=== PATIENT | female | born 1995 | race Caucasian/White ===

== ENCOUNTER 2017-09-15 01:49 | Inpatient (IN) | payer OTHER, SELFPAY ==
[~2017-09-15] VITALS: Ht 162.6 cm; Wt 77.0 kg
[2017-09-15] VITALS (13 sets, daily range): BP systolic 98–127; BP diastolic 54–86
[2017-09-15] MEDS ORDERED: PRENTAB9 PO (02:50)
[2017-09-15 04:04] LABS: MEAN CORPUSCULAR HEMOGLOBIN 30.1 pg (27.0-33.0); MEAN CORPUSCULAR HGB CONC 34.7 g/dl (32.0-36.5); MEAN CORPUSCULAR VOLUME 86.8 fl (80.0-96.0); PLATELET COUNT, AUTOMATED 154 10^3/uL (150-450); RED CELL DISTRIBUTION WIDTH 12.6 % (11.5-14.5); WHITE BLOOD COUNT 12.5 10^3/uL (4.0-10.0)
[2017-09-15] MEDS ORDERED: OXYTOCIN 30 UNITS IN 0.9% NaCl 500ML IV BAG (J2590) As Ordered ONE (05:49)
[2017-09-15] MEDS: PRENATAL VITAMINS CHEWABLE TABLET PO SCH (09:00)
[2017-09-15] MEDS ORDERED: OXYTOCIN DRIP 30 UNITS in APPROPRIATE DILUENT 1 EA IV SCH (09:42)
[2017-09-15] MEDS ORDERED: MEASLES,MUMPS,RUBELLA VACCINE INJ (MMR-II) (90707) SC SCH (09:45)
[2017-09-15] MEDS ORDERED: ACETAMINOPHEN 500 MG TAB PO PRN (09:45)
[2017-09-15] MEDS ORDERED: DOCUSATE SODIUM 100 MG CAP PO PRN (09:45)
[2017-09-15] MEDS ORDERED: RHOGAM 300 MCG (1500 IU) INJ (J2790) IM SCH (09:45)
[2017-09-15] MEDS ORDERED: DIBUCAINE 1% OINTMENT 30GM TOP PRN (09:45)
[2017-09-15] MEDS ORDERED: LIDOCAINE 1% MDV INJ 50 ML VIAL INFIL ONE (09:45)
--- NOTE | 2017-09-15 09:54 | DNPDOC ---
[facility] Delivery Note Delivery Note DATE OF DELIVERY: 09/15/17 PREDELIVERY DIAGNOSIS: 40w5d gestation and labor. POST DELIVERY DIAGNOSIS: Delivered. PROCEDURE: Spontaneous vaginal delivery CIVIL ATTORNEY: Dr. Liza Botello MD ANESTHESIA: lidocaine 1% local injection for repair ESTIMATED BLOOD LOSS: 200 mL. FINDINGS: 6 pound 15 ounce male , Score 9/9, nuchal cord times 2 and right compound hand DELIVERY SUMMARY: Bia is a 22yo [id number] s/p uncomplicated at 0907 on 09/15/17 after presenting to L&D for active labor. PNC complicated by ureterocele for which she will require follow up with pediatric urology in [place] and elevated 1hr glucola with normal 3hr GTT. GBS Negative. She progressed through labor with no regional anesthesia and began pushing at C/C/0. head delivered OA, restituted NATALIE. Tight double nuchal cord and right compound hand noted, left anterior shoulder delivered followed by posterior shoulder and corpus. Nuchal cords reduced at that time. Vigorous with spontaneous cry placed up to maternal chest, apgars 9/9. 1 min delayed cord clamping, cord clamped x2 and cut by FOB. Uterine massage and traction on umbilical cord, placenta delivered spontaneously and intact with centrally inserted umbilical cord with 3 vessels. More uterine massage performed, IV pitocin given per protocol with minimal bleeding noted, ebl 200ml. Small 2mll noted, repaired using 1% lidocaine for anesthesia with 3-0 vicryl in routine fashion. Total hemostasis ensured. All counts correct x2. Mom and infant doing well. Dr. Liza Botello MD [facility] Sa[facility] MD Sep 15, 2017 09:54
[2017-09-15] MEDS: IBUPROFEN 800 MG TAB PO PRN (16:23)
[2017-09-16 06:00] VITALS: BP 106/57
[2017-09-16] MEDS: IBUPROFEN 800 MG TAB PO PRN (06:11)
--- NOTE | 2017-09-16 06:15 | IPNPDOC ---
Progress Note Date of Service Sep 16, 2017 Progress Note PPD 1 Bia is a 22yo [id number] s/p uncomplicated at 40w5d after presenting in active labor, doing well on PPD1. She is tolerating regular diet, ambulating and voiding spontaneously without issue. She is breast feeding easily. Vaginal bleeding is minimal. Just showered and feels good. Vitals wnl, afebrile General: WDWN, sitting comfortably in bed Abdomen: soft, NT, ND, fundus firm at u-2cm Extremities: no pain with palpation of calves bilaterally Assessment: Bia is a 22yo [id number] s/p uncomplicated term , doing well on PPD1. Vitals wnl, exam benign. Hemodynamically stable with no e/o infection. Plan: -Routine care -tylenol/motrin prn pain -regular diet -encourage ambulation and breast feeding -discussed breast feeding at length this morning -likely discharge to home tomorrow Dr. Liza Botello MD [facility] VS, I&O, 24H, [facility] Vital Signs/I&O Vital Signs Date Time Temp Pulse Resp B/P (MAP) Pulse Ox O2 Delivery O2 Flow Rate FiO2 09/15/17 18:00 98.2 74 18 112/59 (76) Laboratory Data 24H LABS Laboratory Tests 2 09/15/17 09:45: Serology Scanned Report Hepatitis B Testing Liza Botello MD Sep 16, 2017 06:15
[2017-09-16] MEDS: PRENATAL VITAMINS CHEWABLE TABLET PO SCH (07:37)
[2017-09-16 18:00] VITALS: BP 115/62
[2017-09-17 06:00] VITALS: BP 110/64
[2017-09-17] MEDS: PRENATAL VITAMINS CHEWABLE TABLET PO SCH (08:13)
--- NOTE | 2017-09-17 10:46 | DS.PDOC ---
Discharge Summary General Date of Admission Sep 15, 2017 at 02:38 Date of Discharge [id number] Discharge Summary Discharge Summary Admission Diagnosis: active labor at term Discharge Diagnosis: s/p uncomplicated spontaneous vaginal delivery Condition: stable Meds on discharge: standard meds Hospital Course: Pt is a 22 yo female admitted in active labor at term. The pt progressed well through labor and had an uncomplicated . Please see delivery note for details. On PPD#2, the pt had normal VS, the pt was tolerating reg diet , ambulating, pain was well controlled, minimal lochia. She was desirous of discharge and was discharged home on PPD#2 with follow up in 6-8wks in OB clinic. Home recommendations: Nothing in vagina for 6 weeks Vital Signs/I&Os Vital Signs Date Time Temp Pulse Resp B/P (MAP) Pulse Ox O2 Delivery O2 Flow Rate FiO2 09/17/17 06:00 97.3 67 18 110/64 (79) 99 Room Air Discharge Medications Scheduled Multivitamins/ ( 27-0.8 mg) 1 Tab Tab, 1 TAB PO DAILY, (Reported ) Allergies Coded Allergies: No Known Allergies (Unverified , 09/15/17) PARAS AYOUB MD Sep 17, 2017 10:46
--- NOTE | 2017-09-17 10:48 | IPNPDOC ---
Text Note Date of Service The patient was seen on 09/17/17. NOTE PPD 2 22yo [id number] s/p uncomplicated at 40w5d after presenting in active labor , doing well ghanshyam, no complaints. She is tolerating regular diet, ambulating and voiding spontaneously without issue. She is breast feeding easily. Vaginal bleeding is minimal. Vitals wnl, afebrile General: WDWN, sitting comfortably in bed Abdomen: soft, NT, ND, fundus firm at u-2cm Extremities: no pain with palpation of calves bilaterally Assessment: Bia is a 22yo [id number] s/p uncomplicated term , doing well. Discharge home. Sessions VS,Celi, I+O VSCeli I+O Vital Signs Date Time Temp Pulse Resp B/P (MAP) Pulse Ox O2 Delivery O2 Flow Rate FiO2 09/17/17 06:00 97.3 67 18 110/64 (79) 99 Room Air SESSIONS,PARAS Patterson MD Sep 17, 2017 10:48
[2017-09-17] MEDS ORDERED: IBUP-1114 PO (11:05)
[2017-09-17] MEDS ORDERED: ACET50TA PO (11:05)
--- NOTE | 2017-09-17 17:22 | IPN ---
DATE: 09/16/2017 This patient has requested circumcision of their male infant. After discussing risks and benefits of circumcision, the medical nonmedical indications, penile block, and aftercare, expressed understanding of penile block, aftercare, risks and benefits. Signed a witnessed consent form. We await the clearance by the rug hooker hand.
== END 2017-09-17 11:30 | disposition home or self-care (01) | DRG 775 ==
LOC: M LDO 01:49 → M LDI 02:38 → M OBS 11:27
PROVIDERS: ADMIT Obstetrics & Gynecology; ATTEND Obstetrics & Gynecology
PROC: 10E0XZZ Delivery of Products of Conception, External Approach (ICD-10-PCS; principal; 2017-09-15)
PROC: 0KQM0ZZ Repair Perineum Muscle, Open Approach (ICD-10-PCS; 2017-09-15)
DX: O48.0 Post-term pregnancy (principal); Z37.0 Single live birth; Z3A.40 40 weeks gestation of pregnancy; O70.1 Second degree perineal laceration during delivery